=== PATIENT | female | born 1960 | race Caucasian/White ===

== ENCOUNTER 2018-05-30 09:48 | Emergency (ER) | payer OTHER ==
[~2018-05-30] VITALS: Ht 165.1 cm; Wt 105.7 kg
[2018-05-30] MEDS ORDERED: TRULICITY0.75 MG/0. SUBQ (09:55)
[2018-05-30] MEDS ORDERED: TRESIBA100 UNIT/1 SUBQ (09:55)
[2018-05-30] MEDS ORDERED: HUMALOG100 UNIT/1 SUBQ (09:56)
[2018-05-30] MEDS ORDERED: ATENOLOL 50MG T50 M1 PO (09:56)
[2018-05-30] MEDS ORDERED: LISINOPRIL40 MG PO (09:57)
[2018-05-30] MEDS ORDERED: CELEBREX 200 M200 M1 PO (09:57)
[2018-05-30] MEDS ORDERED: ALLEGRA ALLERGY60 MG PO (09:57)
[2018-05-30] MEDS ORDERED: CLONAZEPAM 1 MG1 M1 PO ×2 (09:58)
[2018-05-30] MEDS ORDERED: LYRICA 75 MG CA75 MG PO (09:58)
[2018-05-30] MEDS ORDERED: LIPITOR80 MG PO (09:58)
[2018-05-30] MEDS ORDERED: METFORMIN HCL500 MG PO (09:59)
[2018-05-30] MEDS ORDERED: PROPRANOLOL 1010 MG PO (09:59)
[2018-05-30] MEDS ORDERED: CIPRO250 M1 PO (10:00)
[2018-05-30] MEDS ORDERED: ALBUTEROL2.5 MG/31 INH (10:01)
[2018-05-30] MEDS ORDERED: MAGOX 400400 MG PO (10:02)
[2018-05-30] MEDS ORDERED: ZINC50 M1 PO (10:02)
[2018-05-30] MEDS ORDERED: VITAMIN D5000 UNIT PO (10:02)
[2018-05-30] MEDS ORDERED: ULTRAM 50MG TAB50 MG PO (11:14)
[2018-05-30 11:50] VITALS: BP 111/68
== END 2018-05-30 11:59 | disposition home or self-care (01) ==
LOC: ER 09:48
DX: S83.8X1A Sprain of other specified parts of right knee, initial encounter (principal); S50.01XA Contusion of right elbow, initial encounter; S90.01XA Contusion of right ankle, initial encounter; E78.5 Hyperlipidemia, unspecified; I10 Essential (primary) hypertension; E11.9 Type 2 diabetes mellitus without complications; Z88.8 Allergy status to other drugs, medicaments and biological substances; Z88.1 Allergy status to other antibiotic agents; Z88.0 Allergy status to penicillin; Z86.73 Personal history of transient ischemic attack (TIA), and cerebral infarction without residual deficits; Z79.4 Long term (current) use of insulin; W18.39XA Other fall on same level, initial encounter; Y92.89 Other specified places as the place of occurrence of the external cause; Y99.0 Civilian activity done for income or pay; Y99.8 Other external cause status